=== PATIENT | male | born 1940 | race Caucasian/White ===

== ENCOUNTER → 2016-05-05 13:31 | Outpatient (CLI) | payer MEDICARE, OTHER ==
[2014-02-07 12:25] VITALS: BMI 25.7
[~2016-05-05 13:31] MED LIST: BAYER CHEWABLE81 MG PO; CO Q-10 OR; CO Q-1050 MG PO; COLACE100 MG PO; GLIMEPIRIDE1 MG PO; GLIMEPIRIDE4 MG PO; GLUCOPHAGE1000 MG PO; HEMOCYTE PLUS C1 CAP PO; HYDROCODON-ACE1 EAC7 PO; K-DUR20 MEQ PO; LISINOPRIL; NORVASC10 MG PO; PACERONE200 MG PO; SENOKOT-S TABLE1 TAB PO; TESTOSTERON200 MG/ML IM; TESTOSTERONE IM; ZESTORETIC 20/21 TAB PO
== END | disposition home or self-care (01) ==
LOC: D.US 13:31
DX: I65.23 Occlusion and stenosis of bilateral carotid arteries (principal)

== ENCOUNTER → 2020-06-29 07:36 | Outpatient (CLI) | payer BC, OTHER ==
[2014-02-07 12:25] VITALS: BMI 25.7
--- NOTE | ~2020-06-29 | EC ---
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 Ao 223 cm/sec RVOT 65 cm/sec RA cm/sec PA 102 cm/sec AV Gradient Peak 19.98mmHg AV Mean 12.32mmHg AV Area 1.4 cm MV Gradient Peak 5.77 mmHg MV Mean 2.33 mmHg MV Area cm COMMENTS: Calender Tender: 2 KELVIN STEPHENS Steamtable Attendant Railroad: 3 Dr. Tristan TAPE# PACS Pericardial Effusion N DATE OF SERVICE: Adequate 2D, color flow imaging, spectral Doppler, and M-Mode. FINDINGS: No LVH. LV internal dimensions are normal. Wall motion is normal. EF is greater than or equal to 55%. Prosthetic tissue aortic valve is noted with acceptable Doppler velocity and no significant AI. Left atrium is dilated at 5.5 cm. Mitral valve shows no prolapse. Mild MR only. Right-sided chambers are grossly normal. Trace TR only. ECHOCARDIOGRAM REPORT [id number] RYLIE CLARKE TRANSINT:[id number] Voice Confirmation ID: [id number] DOCUMENT ID: [id number] JANINE MORAN MD CC: [id number] DICTATION DATE: 07/02/20920 SUPERVISOR CELL ROOM: 07/02/201912 DEP CLI 06/29/20 [place] [id number] [place] [id number]
== END | disposition home or self-care (01) ==
LOC: D.HCCECHO 06-26 09:30
PROVIDERS: ATTEND Internal Medicine Interventional Cardiology
DX: I20.9 Angina pectoris, unspecified (principal)